=== PATIENT | female | born 1995 | race Caucasian/White ===

== ENCOUNTER 2021-01-31 15:36 | Inpatient (IN) | payer OTHER ==
[~2021-01-31] VITALS: Ht 165.1 cm; Wt 118.8 kg
[~2021-01-31 15:36] MED LIST: COLACE100 MG PO
[2021-01-31 16:43] LABS: HEMOGLOBIN 12.2 gm/dl (12.3-15.3); RED BLOOD COUNT 4.08 M/UL (4.00-5.10); WHITE BLOOD COUNT 7.6 K/UL (4.5-11.0)
[2021-01-31 17:02] LABS: BUN/CREATININE RATIO 24 (0-10)
[2021-01-31] MEDS ORDERED: LABETALOL HCL200 MG PO (17:51)
[2021-02-02 07:03] LABS: HEMOGLOBIN 10.2 gm/dl (12.3-15.3)
[2021-02-03] MEDS ORDERED: HYDROCODONE-AC1 EAC1 PO (11:17)
[2021-02-03] MEDS ORDERED: IBUPROFEN800 MG PO (11:17)
[2021-02-03] MEDS ORDERED: DOCUSATE SODIU100 MG PO (11:17)
== END 2021-02-03 13:15 | disposition home or self-care (01) | DRG 788 ==
LOC: GENOP 15:36 → OB 15:59
PROVIDERS: Obstetrics & Gynecology; ADMIT Obstetrics & Gynecology
PROC: 10D00Z1 Extraction of Products of Conception, Low, Open Approach (ICD-10-PCS; principal; 2021-02-01 10:48)
DX: O13.4 Gestational [pregnancy-induced] hypertension without significant proteinuria, complicating childbirth (principal); O99.52 Diseases of the respiratory system complicating childbirth; Z20.822 Contact with and (suspected) exposure to COVID-19; J45.909 Unspecified asthma, uncomplicated; O99.214 Obesity complicating childbirth; E66.9 Obesity, unspecified; Z37.0 Single live birth; Z3A.37 37 weeks gestation of pregnancy; Z90.89 Acquired absence of other organs
CPT/HCPCS: 36415; 80053; 81001; 82570; 82800; 83615; 84156; 84550; 85014; 85018; 85025; 90715; C9113; J0690; J1885; J2274; J2405; J2590; J3010; J7120; U0002